=== PATIENT | male | born 1990 | race Caucasian/White ===

== ENCOUNTER 2018-07-15 05:24 | Emergency (ER) | payer SELFPAY ==
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
== END 2018-07-15 06:30 | disposition home or self-care (01) ==
LOC: ER 05:24
DX: S42.031A Displaced fracture of lateral end of right clavicle, initial encounter for closed fracture (principal); M54.5 Low back pain; W00.0XXA Fall on same level due to ice and snow, initial encounter; Y93.23 Activity, snow (alpine) (downhill) skiing, snowboarding, sledding, tobogganing and snow tubing; F17.210 Nicotine dependence, cigarettes, uncomplicated
CPT/HCPCS: 99283; 99284

== ENCOUNTER 2018-11-25 05:13 | Emergency (ER) | payer MEDICAID ==
[2018-11-25] MEDS ORDERED: IBUPROFEN 600 MG TABLET PO ONE (06:02)
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
== END 2018-11-25 06:15 | disposition home or self-care (01) ==
LOC: ER 05:13
DX: S93.402A Sprain of unspecified ligament of left ankle, initial encounter (principal); W23.0XXA Caught, crushed, jammed, or pinched between moving objects, initial encounter; Y93.55 Activity, bike riding; Y92.410 Unspecified street and highway as the place of occurrence of the external cause; F17.210 Nicotine dependence, cigarettes, uncomplicated
CPT/HCPCS: 99283